=== PATIENT | male | born 1995 | race Caucasian/White ===

== ENCOUNTER 2022-10-30 23:45 | Emergency (ER) | payer SELFPAY ==
[~2022-10-30] VITALS: Ht 182.9 cm; Wt 79.4 kg
[~2022-10-30 23:45] MED LIST: DESO.05TCA TP; PRED20 PO; Prednisone20 MG PO; Zofran4 MG PO
[2022-10-30 23:50] VITALS: BP 149/98
[2022-10-31] MEDS ORDERED: CEPH500 PO (00:40)
== END 2022-10-31 00:49 | disposition home or self-care (01) ==
LOC: ER 23:45
DX: L98.9 Disorder of the skin and subcutaneous tissue, unspecified (principal); F17.210 Nicotine dependence, cigarettes, uncomplicated
CPT/HCPCS: 99282

== ENCOUNTER 2022-11-09 11:16 | Emergency (ER) | payer SELFPAY ==
[~2022-11-09] VITALS: Ht 182.9 cm; Wt 79.4 kg
[~2022-11-09 11:16] MED LIST changes: +CEPH500 PO
[2022-11-09 11:29] VITALS: BP 149/111
== END 2022-11-09 13:27 | disposition home or self-care (01) ==
LOC: ER 11:16
DX: S01.112A Laceration without foreign body of left eyelid and periocular area, initial encounter (principal); Z23 Encounter for immunization; X83.8XXA Intentional self-harm by other specified means, initial encounter; F17.210 Nicotine dependence, cigarettes, uncomplicated
CPT/HCPCS: 12013; 90471; 90714; 99282-25

== ENCOUNTER 2023-01-21 19:56 | Emergency (ER) | payer OTHER ==
[~2023-01-21] VITALS: Ht 182.9 cm; Wt 77.1 kg
[2023-01-21 20:11] VITALS: BP 140/83
[2023-01-21] MEDS ORDERED: Bactrim Ds Tab1 EACH PO ×2 (20:17→21:02)
== END 2023-01-21 20:57 | disposition home or self-care (01) ==
LOC: ER 19:56
DX: L03.115 Cellulitis of right lower limb (principal); L02.415 Cutaneous abscess of right lower limb; F17.210 Nicotine dependence, cigarettes, uncomplicated; W57.XXXA Bitten or stung by nonvenomous insect and other nonvenomous arthropods, initial encounter
CPT/HCPCS: 10060; 99283-25; A9270

== ENCOUNTER 2023-07-18 17:27 | Emergency (ER) | payer OTHER ==
[~2023-07-18] VITALS: Ht 185.4 cm; Wt 79.4 kg
[~2023-07-18 17:27] MED LIST changes: +Bactrim Ds Tab1 EACH PO
[2023-07-18 18:35] LABS: BASOPHILS ABSOLUTE AUTO 0.04 K/mm3 (0.00-0.23); BASOPHILS PERCENT AUTO 0 % (0-2); EOSINOPHILS ABSOLUTE AUTO 0.37 K/mm3 (0.00-0.68); EOSINOPHILS PERCENT AUTO 3 % (0-6); Hematocrit 39.8 % (37.0-53.0); Hemoglobin 13.1 g/dL (13.5-17.5); IMMATURE GRAN ABSOLUTE AUTO 0.04 K/mm3 (0.00-0.10); IMMATURE GRAN PERCENT AUTO 0 % (0-1); LYMPHOCYTES ABSOLUTE AUTO 1.66 K/mm3 (0.84-5.20); LYMPHOCYTES PERCENT AUTO 15 % (21-46); MONOCYTES ABSOLUTE AUTO 0.97 K/mm3 (0.16-1.47); MONOCYTES PERCENT AUTO 9 % (4-13); Mean Corpuscular HGB 30.7 pg (26.0-34.0); Mean Corpuscular HGB Conc 32.9 g/dL (31.5-36.5); Mean Corpuscular Volume 93 fL (80-100); Mean Platelet Volume 9.6 fL (9.1-12.4); NEUTROPHILS ABSOLUTE AUTO 8.03 K/mm3 (1.96-9.15); NEUTROPHILS PERCENT AUTO 72 % (41-73); Platelet Count 286 K/mm3 (150-400); RDW Coefficient Variation 14.2 % (11.7-14.2); RDW Standard Deviation 48.7 fL (35.1-46.3); Red Blood Cell Count 4.27 M/mm3 (4.30-5.90); White Blood Cell Count 11.11 K/mm3 (4.00-11.30)
[2023-07-18 18:57] LABS: Influenza A, PCR NEGATIVE (NEGATIVE); Influenza B, PCR NEGATIVE (NEGATIVE); Resp Syncytial Virus, PCR NEGATIVE (NEGATIVE); SARS-Cov-2 (COVID-19) PCR, MMC NEGATIVE (NEGATIVE)
[2023-07-18 18:58] LABS: Albumin, Blood 3.7 g/dL (3.4-5.0); Bilirubin, Total 0.4 mg/dL (0.1-1.0); Bun/Creatinine Ratio 13.7 (12.0-20.0); Calcium, Blood 9.2 mg/dL (8.5-10.1); Creatinine, Blood 1.02 mg/dL (0.60-1.20); Globulin, Blood 3.6 g/dL (2.2-4.0); Potassium, Blood 4.4 mmol/L (3.5-5.5); Total Protein, Blood 7.3 g/dL (6.4-8.2)
[2023-07-18 20:30] VITALS: BP 118/70
== END 2023-07-18 20:47 | disposition home or self-care (01) ==
LOC: ER 17:27
PROVIDERS: Student in an Organized Health Care Education/Training Program
DX: S29.012A Strain of muscle and tendon of back wall of thorax, initial encounter (principal); S39.012A Strain of muscle, fascia and tendon of lower back, initial encounter; F17.210 Nicotine dependence, cigarettes, uncomplicated; X58.XXXA Exposure to other specified factors, initial encounter
CPT/HCPCS: 0241U; 71046; 80053; 83690; 85025; 93005; 93010; 99285-25

== ENCOUNTER 2024-01-19 11:17 | Emergency (ER) | payer OTHER ==
[~2024-01-19] VITALS: Ht 185.4 cm; Wt 77.1 kg
[2024-01-19 11:21] VITALS: BP 135/106
[2024-01-19] MEDS ORDERED: AMOCLA875 PO (11:29)
== END 2024-01-19 11:28 | disposition home or self-care (01) ==
LOC: ER 11:17
DX: K04.7 Periapical abscess without sinus (principal); K02.9 Dental caries, unspecified; F15.90 Other stimulant use, unspecified, uncomplicated; F17.210 Nicotine dependence, cigarettes, uncomplicated
CPT/HCPCS: 99282

== ENCOUNTER 2025-02-27 11:03 | Emergency (ER) | payer OTHER ==
[~2025-02-27] VITALS: Ht 188 cm; Wt 77.1 kg
[~2025-02-27 11:03] MED LIST changes: +AMOCLA875 PO
[2025-02-27 11:28] VITALS: BP 150/107
[2025-02-27] MEDS ORDERED: PERM5TC TOP (11:36)
== END 2025-02-27 11:40 | disposition home or self-care (01) ==
LOC: ER 11:03
DX: F15.950 Other stimulant use, unspecified with stimulant-induced psychotic disorder with delusions (principal); F17.210 Nicotine dependence, cigarettes, uncomplicated
CPT/HCPCS: 99282